=== PATIENT | male | born 1960 | race Hispanic/Latino ===

== ENCOUNTER → 2019-01-16 | Outpatient (CLI) | payer BC | END | disposition home or self-care (01) | LOC: SHCH 14:50 | PROVIDERS: ATTEND Internal Medicine Cardiovascular Disease | DX: I11.9 Hypertensive heart disease without heart failure (principal) | CPT/HCPCS: 93306 ==

== ENCOUNTER 2019-02-11 09:12 | Observation (INO) | payer BC ==
[2019-02-06 10:44] LABS: BASOPHILS % (AUTO) 0.6 % (0.0-5.0); EOSINOPHILS % (AUTO) 1.4 % (0.0-8.0); HEMATOCRIT 46.7 % (42-54); LYMPHOCYTES % (AUTO) 16.5 % (21.0-51.0); MEAN CORPUSCULAR HGB CONC 34.7 g/dL (32.0-36.0); MEAN CORPUSCULAR VOLUME 89.4 fL (79-99); MONOCYTES % (AUTO) 6.2 % (3.0-13.0); NEUTROPHILS % (AUTO) 75.3 % (40.0-77.0); PLATELET COUNT (AUTO) 271 K/uL (130-400); RED BLOOD CELL COUNT(AUTO) 5.23 MIL/uL (4.50-6.20); RED CELL DISTRIBUTION WIDTH 13.7 % (11.0-15.5); WHITE BLOOD COUNT (AUTO) 9.3 K/uL (4.8-10.8)
[2019-02-06 10:51] LABS: CREATININE 1.1 mg/dL (0.5-1.5); POTASSIUM 3.9 mmol/L (3.5-5.1)
[2019-02-06 11:00] VITALS: BP 149/74
[2019-02-06 12:09] LABS: PARTIAL THROMBOPLASTIN TIME 26.1 SEC (26.3-35.5); PROTHROMBIN TIME 10.5 SEC (9.6-11.6)
[2019-02-06 12:22] LABS: APPEARANCE,URINE Clear (CLEAR); BILIRUBIN,URINE Negative (NEGATIVE); COLOR,URINE Yellow (YELLOW); GLUCOSE, URINE (UA) >=1000 mg/dL (NEGATIVE); KETONES,URINE Negative (NEGATIVE); LEUKOCYTE ESTERASE ,URINE Negative (NEGATIVE); NITRATE,URINE Negative (NEGATIVE); OCCULT BLOOD,URINE Negative (NEGATIVE); PROTEIN,URINE Negative (NEGATIVE); UROBILINOGEN,URINE 0.2 mg/dL (0.2-1.0)
[2019-02-06 12:29] LABS: BACTERIA,URINE Rare /HPF (None Seen); RBC,URINE 0-1 /HPF (0-1); SQUAMOUS EPITHELIAL CELL,UR Rare /HPF (0-2); WBC,URINE 0-1 /HPF (0-1)
[~2019-02-11] VITALS: Ht 177.8 cm; Wt 80.1 kg
[2019-02-11] VITALS (10 sets, daily range): BP systolic 120–136; BP diastolic 69–77
[~2019-02-11 09:12] MED LIST: ACETAMINOPHEN 325 MG TAB PO PRN; ALPR0.255 PO; ASPI-1181 PO; ATOR10TA69 PO; DAPA10TA PO; INSU300I SQ; LISI1TAB29 PO; METF-446 PO; METO100T14 PO; OMEG1CAP83 PO; OMEP40CA13 PO; OZEMPIC SQ; SODIUM CHLORIDE 0.9% 500ML 500 ML IV SCH
--- NOTE | 2019-02-11 09:25 | NUR ---
PATIENT ARRIVED PATIENT ARRIVED TO DAY PATIENT ACCOMPANIED BY SPOUSE (LOLIS). PATIENT AAOX3, RESPIRATIONS UNLABORED, VITAL SIGNS STABLE, DENIES ANY PAIN AT THIS TIME. PROCEDURE VERIFIED/CONFIRMED WITH PATIENT. HOSPITAL ROUTINE EXPLAINED TO PATIENT AND PATIENT'S SPOUSE, BOTH VERBALIZED UNDERSTANDING. SIDERAILS UP X2, BED IN LOWEST POSITION, CALL BARRAZA IN REACH.
[2019-02-11] MEDS ORDERED: MIDAZOLAM HCL 1 MG/ML 2ML VIAL ONE (10:25)
[2019-02-11] MEDS ORDERED: HEPARIN SODIUM 1000UNIT/ML 10ML VIAL ONE (10:25)
[2019-02-11] MEDS ORDERED: SODIUM BICARB 50MEQ 50ML VIAL ONE (10:25)
[2019-02-11] MEDS ORDERED: IOHEXOL-350 50ML VIAL IV ONE (10:25)
[2019-02-11] MEDS ORDERED: IOHEXOL 350 MG/ML 100ML INFUS..BTL IV ONE (10:25)
[2019-02-11] MEDS ORDERED: NITROGLYCERIN 5 MG/ML 10 ML VIAL IV ONE (10:25)
[2019-02-11] MEDS ORDERED: LIDOCAINE HCL 2% 20ML ONE (10:26)
[2019-02-11] MEDS ORDERED: MEPERIDINE-PF 25 MG/ML SYG ONE (10:26)
--- NOTE | 2019-02-11 10:40 | NUR ---
PATIENT TRANSFERRED PATIENT TAKEN TO [facility] VIA BED BY MIRNA REYES AND MIRNA YOUNG. PATIENT'S FAMILY INSTRUCTED TO WAIT IN ROOM IN ORDER TO SPEAK WITH DR CHERY AFTER PROCEDURE.
[2019-02-11] MEDS ORDERED: PRASUGREL HCL 10 MG TABLET ONE (12:02)
[2019-02-11] MEDS ORDERED: ASPIRIN 325MG EC TAB 325 MG TABLET.DR PO ONE (12:02)
[2019-02-11] MEDS ORDERED: ONDANSETRON HCL 4 MG/2 ML VIAL IVP PRN (12:30)
[2019-02-11] MEDS ORDERED: ACETAMINOPHEN-CODEINE 300/30MG TAB PO PRN ×2 (12:30)
[2019-02-11] MEDS ORDERED: GLUCAGON 1MG KIT 1 MG ML IM PRN (12:30)
[2019-02-11] MEDS ORDERED: ALPRAZOLAM 0.25 MG TABLET PO PRN (12:30)
[2019-02-11] MEDS ORDERED: PANTOPRAZOLE SODIUM 40 MG TABLET.DR PO PRN (12:30)
[2019-02-11] MEDS ORDERED: DEXTROSE 50%-WATER 50 ML DISP.SYRIN IV PRN (12:30)
[2019-02-11] MEDS ORDERED: TEMAZEPAM 30 MG CAP PO PRN (12:30)
--- NOTE | 2019-02-11 12:45 | NUR ---
ERROR ENTRY: INCORRECT TIME ENTERED ON ASSESSMENT. CORRECT TIME ASSESSMENT PERFORMED 1245. Addendum: 02/12/19 at 1713 by ROMA COREAS RN RN Amended: Links added.
--- NOTE | 2019-02-11 12:45 | NUR ---
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 RT GROIN PER CLOSE, DSG DRY & INTACT. PUNCTURE SITE SOFT, NON-TENDER. NO BLEEDING. NO HEMATOMA NOTED. (+) PALPABLE BILATERAL PEDAL PULSES. BLE PINK & WARM TO TOUCH. DENIES INCISIONAL PAIN. PT & FAMILY INFORMED TO MAINTAIN BR X 8 HRS. ORIENTED TO RM. PT A/O X 3. NO SOB. NO DISTRESS NOTED. DENIES CHEST PAIN OR DISCOMFORT. TELE: SR 70s. DENIES N/V AND/OR DIARRHEA. DIET ORDERED. INSTRUCTED TO CALL FOR ASSISTANCE. CALL CHRISTI W/IN REACH. FAMILY @ BEDSIDE.
[2019-02-11] MEDS: SODIUM CHLORIDE 0.9% 1000ML 1,000 ML IV SCH (15:18)
[2019-02-11] MEDS: INSULIN HUMULIN R 100 UNIT/ML 3ML SQ SCH ×2 (16:30→21:00)
[2019-02-11] MEDS: METOPROLOL TARTRATE 50 MG TAB PO SCH (21:00)
[2019-02-11] MEDS ORDERED: ATORVASTATIN CALCIUM 10 MG TABLET PO SCH (21:00)
[2019-02-12] MEDS: SODIUM CHLORIDE 0.9% 1000ML 1,000 ML IV SCH (01:48)
[2019-02-12 03:29] LABS: HEMATOCRIT 44.5 % (42-54); MEAN CORPUSCULAR HEMOGLOBIN 30.8 pg (27.0-33.0); MEAN CORPUSCULAR HGB CONC 34.6 g/dL (32.0-36.0); MEAN CORPUSCULAR VOLUME 88.9 fL (79-99); PLATELET COUNT (AUTO) 241 K/uL (130-400); RED CELL DISTRIBUTION WIDTH 13.5 % (11.0-15.5); WHITE BLOOD COUNT (AUTO) 9.3 K/uL (4.8-10.8)
[2019-02-12 03:41] LABS: CREATININE 1.1 mg/dL (0.5-1.5); POTASSIUM 3.7 mmol/L (3.5-5.1)
[2019-02-12 04:04] VITALS: BP 117/54
[2019-02-12] MEDS: INSULIN HUMULIN R 100 UNIT/ML 3ML SQ SCH ×3 (06:07→16:30)
[2019-02-12 07:00] VITALS: BP 152/79
[2019-02-12] MEDS ORDERED: INSULIN GLARGINE 100 UNITS/ML 10 ML VIAL SQ SCH (07:30)
[2019-02-12] MEDS ORDERED: LISINOPRIL 20 MG TABLET PO SCH (09:00)
[2019-02-12] MEDS ORDERED: ASPIRIN 81 MG EC TAB PO SCH (09:00)
[2019-02-12] MEDS ORDERED: FISH OIL 1000 MG/CAP PO SCH (09:00)
[2019-02-12] MEDS ORDERED: PRASUGREL HCL 10 MG TABLET PO SCH (09:00)
[2019-02-12] MEDS ORDERED: HYDROCHLOROTHIAZIDE 25 MG TABLET PO SCH (09:00)
[2019-02-12] MEDS ORDERED: ***HM*** (Dapagliflozin Propanediol (Farxiga) 10 MG) PO SCH (09:00)
[2019-02-12] MEDS: METOPROLOL TARTRATE 50 MG TAB PO SCH (09:06)
[2019-02-12 11:00] VITALS: BP 131/71
[2019-02-12 16:00] VITALS: BP 142/81
--- NOTE | 2019-02-12 18:30 | NUR ---
discharge patient discharged home at this time; all dc instructions given; all questions answered; prescription given and called in to [facility] on [address]; piv and telepack removed
[2019-02-16] MEDS ORDERED: OZEMPIC 0.5 MG SQ SCH (09:00)
== END 2019-02-12 18:35 | disposition home or self-care (01) ==
LOC: DAH 09:12 → 2AH 09:13 → DAH 09:13
PROVIDERS: ADMIT Internal Medicine; ATTEND Internal Medicine
DX: I25.119 Atherosclerotic heart disease of native coronary artery with unspecified angina pectoris (principal); I25.5 Ischemic cardiomyopathy; I25.82 Chronic total occlusion of coronary artery; I10 Essential (primary) hypertension; E78.5 Hyperlipidemia, unspecified; E11.9 Type 2 diabetes mellitus without complications; F41.9 Anxiety disorder, unspecified; Z79.84 Long term (current) use of oral hypoglycemic drugs; Z79.899 Other long term (current) drug therapy
CPT/HCPCS: 36415 ×2; 71045; 80048 ×2; 81001; 82948 ×6; 85025; 85027; 85610; 85730; 93005; 93458; 96372; A4215; A4216; A4221; A4222; A4223 ×3; A4606; A4663; C1725; C1760; C1769 ×2; C1874 ×3; C1887 ×2; C1894; C9600; C9607; G0378 ×30; J1644 ×3; J1815; J2175; J2250; J3490 ×3; J7030; Q9965 ×2; Q9967 ×2; 99156; 99157

== ENCOUNTER → 2020-05-06 | Outpatient (CLI) | payer OTHER ==
[~2020-05-06] MED LIST changes: -ACETAMINOPHEN 325 MG TAB PO PRN; -ASPI-1181 PO; +ASPI-1443 PO; -SODIUM CHLORIDE 0.9% 500ML 500 ML IV SCH
== END | disposition home or self-care (01) ==
LOC: SHCH 11:01
PROVIDERS: ATTEND Internal Medicine Cardiovascular Disease
DX: I25.5 Ischemic cardiomyopathy (principal)
CPT/HCPCS: 93306; 93356

== ENCOUNTER → 2020-05-07 | Outpatient (CLI) | payer OTHER ==
[~2020-05-07] MED LIST changes: +REGADENOSON 0.4 MG/5 ML PF SYG IVP SCH
== END | disposition home or self-care (01) ==
LOC: SHCH 08:32
PROVIDERS: ATTEND Internal Medicine Cardiovascular Disease
DX: I25.10 Atherosclerotic heart disease of native coronary artery without angina pectoris (principal); I10 Essential (primary) hypertension
CPT/HCPCS: 78452; 93017; 96374; A9500 ×2; J2785

== ENCOUNTER 2020-06-28 06:00 | Day surgery (SDC) | payer OTHER ==
[2020-06-25 09:30] LABS: BASOPHILS % (AUTO) 0.4 % (0.0-5.0); EOSINOPHILS % (AUTO) 0.9 % (0.0-8.0); HEMATOCRIT 51.8 % (42-54); MEAN CORPUSCULAR HEMOGLOBIN 28.7 pg (27.0-33.0); MEAN CORPUSCULAR HGB CONC 32.8 g/dL (32.0-36.0); MEAN CORPUSCULAR VOLUME 87.5 fL (79-99); MONOCYTES % (AUTO) 6.7 % (3.0-13.0); NEUTROPHILS % (AUTO) 76.2 % (40.0-77.0); PLATELET COUNT (AUTO) 238 K/uL (130-400); RED BLOOD CELL COUNT(AUTO) 5.92 MIL/uL (4.50-6.20); RED CELL DISTRIBUTION WIDTH 13.4 % (11.0-15.5); WHITE BLOOD COUNT (AUTO) 9.2 K/uL (4.8-10.8)
[2020-06-25 09:42] LABS: CREATININE 1.2 mg/dL (0.5-1.5); POTASSIUM 4.2 mmol/L (3.5-5.1)
[2020-06-25 09:48] LABS: INR 1.01 (0.85-1.15)
[2020-06-25 09:49] LABS: PARTIAL THROMBOPLASTIN TIME 24.2 SEC (26.3-35.5)
[2020-06-25 10:40] VITALS: BP 130/69
[2020-06-28] VITALS (10 sets, daily range): BP systolic 92–126; BP diastolic 45–66
[~2020-06-28] VITALS: Ht 177.8 cm; Wt 82.6 kg
[~2020-06-28 06:00] MED LIST changes: -ALPR0.255 PO; +BIMA12.5OS OU; +COMB5OS OU; +DORZ10DR19 OU; +LATA7.5D OU; -OMEG1CAP83 PO; +PRAS10TA9 PO; -REGADENOSON 0.4 MG/5 ML PF SYG IVP SCH; +SODIUM CHLORIDE 0.9% 1000ML 1,000 ML IV SCH
[2020-06-28] MEDS ORDERED: LIDOCAINE HCL 1% MDV 50ML VIAL ONE (09:02)
[2020-06-28] MEDS ORDERED: BUPIVACAINE/PF 0.25% 30ML VIAL IJ ONE (09:02)
[2020-06-28] MEDS ORDERED: IODIXANOL 320 MG/ML 100 ML VIAL ONE (09:11)
[2020-06-28] MEDS ORDERED: CEFAZOLIN SODIUM 1 GM VIAL ONE (09:11)
[2020-06-28] MEDS ORDERED: MIDAZOLAM HCL 1 MG/ML 2ML VIAL ONE ×3 (09:12→09:45)
[2020-06-28] MEDS ORDERED: MEPERIDINE-PF 50 MG/ML SYG ONE (09:12)
[2020-06-28] MEDS ORDERED: MEPERIDINE-PF 25 MG/ML SYG ONE (09:45)
[2020-06-28] MEDS ORDERED: ONDANSETRON HCL 4 MG/2 ML VIAL IV PRN (11:00)
[2020-06-28] MEDS ORDERED: DEXTROSE 50%-WATER 50 ML DISP.SYRIN IV PRN (11:00)
[2020-06-28] MEDS ORDERED: ACETAMINOPHEN-CODEINE 300/30MG TAB PO PRN ×2 (11:00)
[2020-06-28] MEDS: INSULIN HUMULIN R 100 UNIT/ML 3ML SQ SCH ×2 (11:30→16:30)
[2020-06-28] MEDS ORDERED: ACETAMINOPHEN 325 MG TAB PO ONE (16:00)
[2020-06-28] MEDS ORDERED: CEFAZOLIN SODIUM 1 GM VIAL IVP SCH (17:00)
== END 2020-06-28 18:05 | disposition home or self-care (01) ==
LOC: DAH 06:00
PROVIDERS: ATTEND Internal Medicine Cardiovascular Disease
DX: I50.22 Chronic systolic (congestive) heart failure (principal); I25.5 Ischemic cardiomyopathy; I11.0 Hypertensive heart disease with heart failure; E11.9 Type 2 diabetes mellitus without complications; I45.10 Unspecified right bundle-branch block; F41.9 Anxiety disorder, unspecified; E78.5 Hyperlipidemia, unspecified; I25.2 Old myocardial infarction; Z79.890 Hormone replacement therapy; Z79.899 Other long term (current) drug therapy; Z79.82 Long term (current) use of aspirin; Z79.84 Long term (current) use of oral hypoglycemic drugs; Z98.890 Other specified postprocedural states; Z95.5 Presence of coronary angioplasty implant and graft; Z79.01 Long term (current) use of anticoagulants
CPT/HCPCS: 33225; 33249; 36415; 71045; 80048; 82948 ×3; 85025; 85610; 85730; 93005; A4215; A4216; A4221; A4222; A4223 ×3; A4606; A4663; A6260; C1769 ×2; C1882; C1894; C1895; C1896; C1900; J0690 ×2; J2175; J2250 ×2; J3490 ×2; J7030; Q9967; 99156; 99157

== ENCOUNTER 2021-01-20 05:56 | Day surgery (SDC) | payer OTHER ==
[2021-01-18 16:20] LABS: BASOPHILS % (AUTO) 0.6 % (0.0-5.0); EOSINOPHILS % (AUTO) 2.6 % (0.0-8.0); HEMATOCRIT 48.7 % (42-54); LYMPHOCYTES % (AUTO) 18.8 % (21.0-51.0); MEAN CORPUSCULAR HEMOGLOBIN 28.8 pg (27.0-33.0); MEAN CORPUSCULAR HGB CONC 33.1 g/dL (32.0-36.0); MONOCYTES % (AUTO) 6.7 % (3.0-13.0); PLATELET COUNT (AUTO) 289 K/uL (130-400); RED CELL DISTRIBUTION WIDTH 13.7 % (11.0-15.5); WHITE BLOOD COUNT (AUTO) 9.7 K/uL (4.8-10.8)
[2021-01-18 16:21] LABS: APPEARANCE,URINE Clear (CLEAR); BILIRUBIN,URINE Negative (NEGATIVE); COLOR,URINE Yellow (YELLOW); GLUCOSE, URINE (UA) >=1000 mg/dL (NEGATIVE); KETONES,URINE Trace mg/dL (NEGATIVE); LEUKOCYTE ESTERASE ,URINE Negative (NEGATIVE); NITRATE,URINE Negative (NEGATIVE); OCCULT BLOOD,URINE Negative (NEGATIVE); PROTEIN,URINE Negative (NEGATIVE); UROBILINOGEN,URINE 0.2 mg/dL (0.2-1.0)
[2021-01-18 16:36] LABS: INR 1.01 (0.85-1.15)
[2021-01-18 16:38] LABS: PARTIAL THROMBOPLASTIN TIME 28.2 SEC (26.3-35.5)
[2021-01-18 16:41] LABS: BACTERIA,URINE None Seen /HPF (None Seen); MUCUS,URINE Rare LPF (None Seen); RBC,URINE 0-1 /HPF (0-1); SQUAMOUS EPITHELIAL CELL,UR Rare /HPF (0-2); WBC,URINE 0-1 /HPF (0-1)
[2021-01-18 16:55] LABS: CREATININE 1.1 mg/dL (0.5-1.5); POTASSIUM 4.1 mmol/L (3.5-5.1)
[2021-01-19 10:00] VITALS: BP 173/89
[2021-01-20] VITALS (12 sets, daily range): BP systolic 98–144; BP diastolic 63–75
[~2021-01-20] VITALS: Ht 180.3 cm; Wt 83.6 kg
[~2021-01-20 05:56] MED LIST changes: +0.9% NACL 500ML IV.SOLN 500 ML IV SCH; +ACETAMINOPHEN 325 MG TAB PO PRN; -BIMA12.5OS OU; +CLOB15CR5 TP; -DORZ10DR19 OU; -OMEP40CA13 PO; +OMEP40CA21 PO; -SODIUM CHLORIDE 0.9% 1000ML 1,000 ML IV SCH
[2021-01-20] MEDS ORDERED: 0.9%NACL 1000ML 1,000 ML IV ONE ×2 (07:09→08:10)
[2021-01-20] MEDS ORDERED: SODIUM BICARB 50MEQ 50ML VIAL 50 ML ONE (08:38)
[2021-01-20] MEDS ORDERED: IOHEXOL 350 MG/ML 100ML INFUS..BTL IV ONE (08:39)
[2021-01-20] MEDS ORDERED: MIDAZOLAM HCL 1 MG/ML 2ML VIAL ONE (08:39)
[2021-01-20] MEDS ORDERED: IOHEXOL-350 75 ML VIAL IV ONE (08:39)
[2021-01-20] MEDS ORDERED: HEPARIN 10,000 UNIT/10ML (1,000 UNIT/ML) VIAL ONE (08:39)
[2021-01-20] MEDS ORDERED: MEPERIDINE-PF 25 MG/ML SYG ONE (08:39)
[2021-01-20] MEDS ORDERED: LIDOCAINE HCL 400MG/20ML VIAL ONE (08:39)
[2021-01-20] MEDS ORDERED: NITROGLYCERIN 2 MG VIAL IV ONE (08:41)
[2021-01-20] MEDS ORDERED: 0.9%NACL 1000ML 1,000 ML IV SCH (10:00)
[2021-01-20] MEDS ORDERED: ONDANSETRON 4MG INJ IVP PRN (10:00)
== END 2021-01-20 19:20 | disposition home or self-care (01) ==
LOC: DAH 05:56
PROVIDERS: ATTEND Internal Medicine Cardiovascular Disease
DX: I25.119 Atherosclerotic heart disease of native coronary artery with unspecified angina pectoris (principal); T82.855A Stenosis of coronary artery stent, initial encounter; I11.0 Hypertensive heart disease with heart failure; I50.42 Chronic combined systolic (congestive) and diastolic (congestive) heart failure; I25.2 Old myocardial infarction; E78.5 Hyperlipidemia, unspecified; E11.9 Type 2 diabetes mellitus without complications; F41.9 Anxiety disorder, unspecified; I45.10 Unspecified right bundle-branch block; Z79.82 Long term (current) use of aspirin; Z79.01 Long term (current) use of anticoagulants; Z79.899 Other long term (current) drug therapy; Z95.5 Presence of coronary angioplasty implant and graft; Z82.49 Family history of ischemic heart disease and other diseases of the circulatory system; Z79.84 Long term (current) use of oral hypoglycemic drugs; Y83.8 Other surgical procedures as the cause of abnormal reaction of the patient, or of later complication, without mention of misadventure at the time of the procedure
CPT/HCPCS: 36415; 71045; 80048; 81001; 82948 ×2; 85025; 85610; 85730; 93005; 93458; A4215; A4216; A4221; A4222; A4223 ×2; A4606; A4663; C1760 ×2; C1769; C1874; C1887 ×2; C1894; C9600; J1644 ×2; J2175; J2250; J3490 ×3; J7030 ×2; Q9967; 99156; 99157

== ENCOUNTER → 2022-06-22 | Outpatient (CLI) | payer OTHER ==
[~2022-06-22] MED LIST changes: -0.9% NACL 500ML IV.SOLN 500 ML IV SCH; -ACETAMINOPHEN 325 MG TAB PO PRN; -LISI1TAB29 PO; +LISI1TAB53 PO
[2022-06-22 11:32] LABS: BASOPHILS % (AUTO) 0.7 % (0.0-5.0); EOSINOPHILS % (AUTO) 2.3 % (0.0-8.0); HEMATOCRIT 46.5 % (42-54); LYMPHOCYTES % (AUTO) 16.7 % (21.0-51.0); MEAN CORPUSCULAR HEMOGLOBIN 30.3 pg (27.0-33.0); MEAN CORPUSCULAR HGB CONC 33.3 g/dL (32.0-36.0); MONOCYTES % (AUTO) 8.7 % (3.0-13.0); NEUTROPHILS % (AUTO) 71.1 % (40.0-77.0); PLATELET COUNT (AUTO) 278 K/uL (130-400); RED BLOOD CELL COUNT(AUTO) 5.11 MIL/uL (4.50-6.20); RED CELL DISTRIBUTION WIDTH 14.7 % (11.0-15.5); WHITE BLOOD COUNT (AUTO) 7.5 K/uL (4.8-10.8)
[2022-06-22 11:43] LABS: HEMOGLOBIN A1C 6.2 % (4.0-6.0)
[2022-06-22 11:47] LABS: CREATININE 1.2 mg/dL (0.5-1.5); POTASSIUM 4.2 mmol/L (3.5-5.1); T4 (THYROXINE) 8.2 ug/dL (4.7-13.3); THYROID STIMULATING HORMONE 0.65 uIU/mL (0.36-3.74); TOTAL PROTEIN, SERUM 7.5 g/dL (6.0-8.3)
== END | disposition home or self-care (01) ==
LOC: LAB 08:15
PROVIDERS: ATTEND Internal Medicine Cardiovascular Disease
DX: I25.5 Ischemic cardiomyopathy (principal); I10 Essential (primary) hypertension
CPT/HCPCS: 36415; 80053; 80061; 83036; 84153; 84436; 84443; 84479; 85025

== ENCOUNTER → 2024-04-01 | Outpatient (CLI) | payer OTHER ==
--- NOTE | 2024-04-06 14:13 | HMCSR ---
APPROVED REPORT EXAM: Two-dimensional and M-mode echocardiogram with Doppler and color Doppler. INDICATION Chest Pain Surgery/Intervention Pacemaker: Date: 2020 RISK FACTORS Hypertension Hyperlipidemia Diabetes 2D Dimensions RVDd4.0 cmLVEF(%)39.0 (>50%)LVED Vol(simp.)132.0 mL IVSd1.0 (0.7-1.1cm)FS(%)19 %LVES Vol(simp.)84.0 mL LVDd5.4 (3.8-5.6cm)LA (2D)4.0 (1.6-4.0cm)LVEF(%, simp.)36 % PWd1.0 (0.7-1.1cm)Ao Root(2D)3.2 (2.0-3.7cm)LA ESV INDEX (BP)28.80 mL/m2 LVDs4.3 (2.5-4.0cm)LVOT diam2.2 (1.8-2.4cm) IVC diam1.5 cm M-Mode Dimensions EPSS0.8 cm Aortic Valve AoV Vmax1.0 m/Mark Peak GR4.4 mmHgLVOT Vmax0.7 m/s AoV VTI0.2 mAo Mean GR2.7 mmHgLVOT VTI0.17 m INÉS (VMAX)2.6 cm2AVA (VTI) 2.6 cm2 Mitral Valve MV E Vmax66.8 cm/sDECEL Pxfu558 ms MV A Vmax81.6 cm/s E/A ratio0.8 TDI E/E' Medial6.3 Pulmonary Valve PV Vmax0.8 m/sPV VTI0.19 m Tricuspid Valve TR Vmax2.5 m/sRAP (EST) 3 qwOzYOND92.9 mmHg TR Peak GR25.9 mmHg Left Ventricle Left ventricular cavity size is normal. Apical akinesis to dyskinesis. There is borderline concentric left ventricular hypertrophy. LVEF is 40%. No left ventricle thrombus noted on this study. Stage I d iastolic dysfunction. Right Ventricle The right ventricle is normal size. The right ventricular systolic function is normal. Atria The left atrium size is normal. The right atrium size is normal. Aortic Valve Aortic valve is trileaflet. Aortic valve leaflets are sclerotic but open well. No aortic regurgitatio n is present. There is no aortic valvular stenosis. Mitral Valve Mitral valve leaflets are sclerotic but open well. Mitral regurgitation is trace. There is no mitral valve stenosis. Tricuspid Valve The tricuspid valve leaflets appear normal. There is mild tricuspid regurgitation. Pulmonic Valve The pulmonic valve leaflets are thin and pliable; valve motion is normal. There is trace pulmonic viviane vular regurgitation. Great Vessels The aortic root is normal in size. The IVC is normal in size and collapses >50% with inspiration. Pericardium No pericardial effusion. Conclusion Left ventricular cavity size is normal. There is borderline concentric left ventricular hypertrophy. LVEF is 40%. Stage I diastolic dysfunction. Apical akinesis to dyskinesis. The right ventricle is normal size. The left atrium size is normal. Aortic valve is trileaflet. Aortic valve leaflets are sclerotic but open well. No aortic regurgitation is present. Mitral valve leaflets are sclerotic but open well. Mitral regurgitation is trace. There is mild tricuspid regurgitation. There is trace pulmonic valvular regurgitation. The aortic root is normal in size. The IVC is normal in size and collapses >50% with inspiration. No pericardial effusion.
== END | disposition home or self-care (01) ==
LOC: SHCH 12:41
PROVIDERS: ATTEND Internal Medicine Cardiovascular Disease
DX: I08.3 Combined rheumatic disorders of mitral, aortic and tricuspid valves (principal); I11.9 Hypertensive heart disease without heart failure; R07.9 Chest pain, unspecified; E78.5 Hyperlipidemia, unspecified; E11.9 Type 2 diabetes mellitus without complications; Z95.0 Presence of cardiac pacemaker
CPT/HCPCS: 93306

== ENCOUNTER → 2024-04-21 | Outpatient (CLI) | payer OTHER ==
[2024-04-21] MEDS: REGADENOSON 0.4 MG/5 ML PF SYG IVP ONE (09:44)
--- NOTE | 2024-04-22 16:59 | HMCSR ---
APPROVED REPORT Height: 5 ft 10in Weight: 183 lbs TEST INDICATIONS Chest Pain The imaging protocol used to acquire images was Rest Tc-99m/stress Tc-99m 1 day Consent: The procedure was explained and understood by the patient. Informerd consent was witnessed Vickie Mooney RN First, low dose rest was performed then high dose stress. RESTING DATA: The resting ekg shows: Pacemaker Rest SPECT myocardial perfusion imaging was performed in supine position 56 minutes following the int ravenous injection of 11.8 mCi of Tc-99 Sestamibi. Time of rest injection: 08:30: Date: 04/21/2024 Time of rest imagin:26: Date: 04/21/2024 PHARMACOLOGIC STRESS: Pharmacologic stress test was performed by injecting regadenoson 0.4 mg IV push followed by the intra venous injection of 31 mCi of Tc-99 Sestamibi. Time of stress injection: 10:00: Date: 04/21/2024 Time of stress imagin:03: Date: 04/21/2024 Heart Rate at time of stress injection: 74 bpm. Gated Stress SPECT was performed 63 minutes after stress injection. The images were gated to evaluate regional wall motion and calculate left ventricular ejection fracti on. STRESS DETAILS Reason for Termination: Infusion complete Stress Symptoms: Dyspnea Max HR Achieved: 88 bpm % of APMHR Achieved: 57 Max Blood Pressure: 148/76 mmHg Stress ECG: Pacemaker LEFT VENTRICLE Size: The left ventricular size is mildly dilated. Systolic Function:The left ventricular systolic function is moderately decreased. Wall Motion: Moderate global hypokinesis. The left ventricular ejection fraction was calculated to be 40%.TID = . LV PERFUSION Fixed infero-lateral thinning defect. Partially reversible dante-apical defect. Conclusion The left ventricular size is mildly dilated. The left ventricular systolic function is moderately decreased. Moderate global hypokinesis. Fixed infero-lateral thinning defect. Partially reversible dante-apical defect. The left ventricular ejection fraction was calculated to be 40%.
== END | disposition home or self-care (01) ==
LOC: SHCH 08:11
PROVIDERS: ATTEND Internal Medicine Cardiovascular Disease
DX: I51.7 Cardiomegaly (principal); R07.9 Chest pain, unspecified; Z95.0 Presence of cardiac pacemaker
CPT/HCPCS: 78452; 93017; J2785; A9500 ×2

== ENCOUNTER 2024-06-06 07:59 | Day surgery (SDC) | payer OTHER ==
[2024-06-04 10:05] VITALS: BP 129/68; PULSE 80; RESP 18; TEMP 98.1
--- NOTE | 2024-06-04 10:19 | EKG ---
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
[2024-06-04 10:29] LABS: BASOPHILS # (AUTO) 0.05 K/uL (0.00-0.20); BASOPHILS % (AUTO) 0.7 % (0.0-5.0); EOSINOPHILS # (AUTO) 0.17 K/uL (0.00-0.70); EOSINOPHILS % (AUTO) 2.4 % (0.0-8.0); HEMATOCRIT 41.5 % (42-54); IMMATURE GRANULOCYTE ABSOLUTE 0.02 K/uL (0-1); LYMPHOCYTES # (AUTO) 1.2 K/uL (1.0-4.8); MEAN CORPUSCULAR HEMOGLOBIN 32.2 pg (27.0-33.0); MEAN CORPUSCULAR HGB CONC 34.5 g/dL (32.0-36.0); MEAN CORPUSCULAR VOLUME 93.5 fL (79-99); MONOCYTES # (AUTO) 0.5 K/uL (0.1-1.0); MONOCYTES % (AUTO) 6.3 % (3.0-13.0); NEUTROPHILS # (AUTO) 5.3 K/uL (1.8-7.7); NEUTROPHILS % (AUTO) 73.3 % (40.0-77.0); PLATELET COUNT (AUTO) 280 K/uL (130-400); RED BLOOD CELL COUNT(AUTO) 4.44 MIL/uL (4.50-6.20); RED CELL DISTRIBUTION WIDTH 15.9 % (11.0-15.5); WHITE BLOOD COUNT (AUTO) 7.2 K/uL (4.8-10.8)
[2024-06-04 10:40] LABS: INR 1.01 (0.85-1.15); PROTHROMBIN TIME 11.3 SEC (9.6-11.6)
[2024-06-04 10:41] LABS: PARTIAL THROMBOPLASTIN TIME 27.1 SEC (26.3-35.5)
--- NOTE | 2024-06-04 10:52 | HMCIMG ---
Exam Type: CHEST 1VW Clinical Information: PREOP Comparison: None Findings: The lungs are clear of infiltrates. The heart is enlarged in size. The bony and soft tissue structures of the chest are unremarkable. Left cardiac pacemaker is noted with leads in place. Impression: Clear lungs.
[2024-06-04 11:09] LABS: B-TYPE NATRIURETIC PEPTIDE 20 pg/mL (0-100)
[2024-06-04 11:32] LABS: ADD UA MICROSCOPIC YES; APPEARANCE,URINE CLEAR (CLEAR); BACTERIA,URINE RARE /HPF (None Seen); BILIRUBIN,URINE NEGATIVE (NEGATIVE); COLOR,URINE YELLOW (YELLOW); GLUCOSE, URINE (UA) >=1000 mg/dL (NEGATIVE); KETONES,URINE NEGATIVE (NEGATIVE); LEUKOCYTE ESTERASE ,URINE NEGATIVE Leu/uL (NEGATIVE); MUCUS,URINE RARE LPF (None Seen); NITRATE,URINE NEGATIVE (NEGATIVE); OCCULT BLOOD,URINE NEGATIVE (NEGATIVE); PH,URINE 5.5 (5.0-8.0); PROTEIN,URINE NEGATIVE (NEGATIVE); RBC,URINE 0-1 /HPF (0-1); SQUAMOUS EPITHELIAL CELL,UR RARE /HPF (0-2); UROBILINOGEN,URINE 0.2 mg/dL (0.2-1.0); WBC,URINE 0-1 /HPF (0-1)
[2024-06-06] VITALS (14 sets, daily range): BP systolic 120–150; BP diastolic 66–75; PULSE 67–85; RESP 11–27; TEMP 97.3–98.2
[~2024-06-06] VITALS: Ht 177.8 cm; Wt 81.3 kg
[~2024-06-06 07:59] MED LIST changes: +ALPR0.255 PO; +AMLO-257 PO; -ATOR10TA69 PO; +ATOR20TA65 PO; -CLOB15CR5 TP; -COMB5OS OU; -DAPA10TA PO; +DAPA5TAB PO; +FOLI0.4T6 PO; +ICOS1CAP PO; -LATA7.5D OU; -LISI1TAB53 PO; +METH2.5T6 PO; -PRAS10TA9 PO; +SACU1TAB7 PO; +TRAZ-185 PO
[2024-06-06] MEDS: 0.9%NACL 1000ML 1,000 ML IV SCH (08:31)
[2024-06-06] MEDS ORDERED: LIDOCAINE HCL 400MG/20ML VIAL ONE (10:20)
[2024-06-06] MEDS ORDERED: IOHEXOL 350 MG/ML 100ML INFUS..BTL IV ONE (10:20)
[2024-06-06] MEDS ORDERED: MIDAZOLAM HCL 1 MG/ML 2ML VIAL ONE ×2 (10:20→10:36)
[2024-06-06] MEDS ORDERED: HEParin 10,000 UNIT/10ML (1,000 UNIT/ML) VIAL ONE (10:20)
[2024-06-06] MEDS ORDERED: niCARDIpine 25MG INJ IV ONE (10:20)
[2024-06-06] MEDS ORDERED: IOHEXOL-350 75 ML VIAL IV ONE (10:20)
[2024-06-06] MEDS ORDERED: MEPERIDINE-PF 50 MG/ML SYG ONE (10:20)
[2024-06-06] MEDS ORDERED: NITROGLYCERIN 50MG VIAL ONE (10:21)
[2024-06-06] MEDS ORDERED: HEParin-NS 1,000 UNIT/500 ML 1,000 ML IV ONE (10:21)
[2024-06-06] MEDS ORDERED: cloPIDOgrel 300MG TAB ONE (11:30)
[2024-06-06] MEDS ORDERED: 0.9%NACL 10ML VIAL IV PRN (12:00)
[2024-06-06] MEDS ORDERED: DEXTROSE 50%-WATER 50 ML DISP.SYRIN IV PRN (12:00)
--- NOTE | 2024-06-06 13:30 | NUR ---
VASC BAND REMOVED 2MLS OF AIR NOTED ACTIVE BLEEDING. 2MLS OF AIR INJECTED BACK IN WILL ATTEMPT AGAIN AT 1400.
--- NOTE | 2024-06-06 14:00 | NUR ---
VASC BAND ATTEMPTED TO REMOVE 2MLS OF AIR NOTED ACTIVE BLEEDING. 2MLS OF AIR RETURNED. NO ACTIVE BLEEDING. WILL WAIT AN HOUR BEFORE ATTEMPTING TO REMOVE 2MLS.
--- NOTE | 2024-06-06 14:55 | CCATH ---
PROCEDURES: * Left heart catheterization. * Selective diagnostic right and left coronary arteriogram. * Balloon angioplasty and stenting of the mid circumflex coronary artery x 2. * Balloon angioplasty and stenting of the mid LAD. * Conscious sedation for 1 hour. INDICATIONS: * Known history of coronary artery disease. * Status post remote multivessel stenting. * Ischemic cardiomyopathy with advanced LV dysfunction. * Abnormal Lexiscan Cardiolite. * Recurrent anginal equivalent symptoms. COMPLICATIONS: None. TOTAL CONTRAST: Approximately 85 mL. DESCRIPTION OF PROCEDURE: The patient was taken to the cardiac catheterization lab after the appropriate operative consents were signed. He was prepped and draped in the usual fashion. After conscious sedation was administered, the right radial artery region was infiltrated with 2% Xylocaine without epinephrine. A 6-Amharic radial slender sheath was advanced in retrograde fashion by the modified Seldinger technique over an indwelling wire. Radial cocktail was administered. At this point, a TIG 4 6-Amharic diagnostic catheter was advanced over an indwelling wire. This was positioned in the left ventricular cavity. Left ventricular end-diastolic pressure measurement was obtained. Ventriculography was deferred. The patient had an EF of 30% by echocardiographic studies. There was no evidence of aortic stenosis on pullback. At this point, the TIG 4 catheter was engaged in the ostium of the right coronary artery. This was imaged in multiplane. This was a small to moderately sized vessel that was widely patent. There was a patent stent in the proximal RCA and a patent stent in the distal RCA extending into the PDA. The patient had a codominant circulation and there was no PLVB coming off the left circulation. The PDA was a moderately sized vessel and had a mid vascular 60% lesion. The catheter was then redirected and engaged in the ostium of the left main. Imaging was obtained in multiplane. The left main was a large vessel that was free of disease and bifurcated into an LAD and a circumflex. Circumflex coronary artery was a large vessel that gave rise to several marginal branches and ongoing circumflex. The circumflex had a 90% lesion in its mid portion just after the second diagonal before a very large distal diagonal. The diagonal 1 was small, diagonal 2 is moderately sized and free of disease. The LAD was a large vessel that gave rise to several diagonals and septal perforators. The LAD had a patent stent in its proximal portion from the ostium to the area just after the first diagonal. The mid LAD had a 60% and a tandem 80% sequential lesions. The second diagonal was a smaller vessel and had a 60% lesion. Given the patient's symptoms and his abnormal Lexiscan Cardiolite, the decision was made to proceed with intervention for the circumflex and the LAD. At this point, an XB3 guide 6-Amharic catheter was selected and engaged in the left main coronary artery. A 0.014 wire was advanced and positioned in the distal circumflex circulation. We proceeded by placing a 2.75 x 26 mm [place] stent in the mid circumflex, which was inflated to nominal pressures. This had excellent angiographic results; however, there was an evidence of proximal edge dissection. We elected to cover that with a 3.0 x 26 mm [place] which was overlapped into the previously deployed stent and inflated to nominal pressures in the proximal to mid circumflex. At this point, the wire was redirected into the distal LAD. We then placed a 2.75 x 26 [place] in the mid LAD, which was inflated to 14 atmospheres at 2.85 mm size with good final angiographic results. At this point, the patient left the lab tech in stable condition after appropriate sheath withdrawal was performed. A radial band was applied. The patient was stable at the end of the procedure. FINAL IMPRESSION: * Severe prairie band coronary artery disease. * Patent proximal and distal right coronary artery stents in a codominant system. * Patent proximal left anterior descending artery stent. * Successful balloon angioplasty and stent placement into the mid to distal and proximal to mid circumflex with 2 overlapping stents, 2.75 x 26 and 3.0 x 26 [place] with good angiographic results. * Successful balloon angioplasty and stenting of the mid LAD with a 2.75 x 26 [place] stent to 14 atmospheres at 2.85 mm size with good final angiographic results. PLAN: Continue medical management. TID: [id number] RECEIPT: [id number]
--- NOTE | 2024-06-06 16:15 | NUR ---
VASC BAND REMOVED VASC BAND USING CHLORA PREP TO CLEAN SITE. APPLIED 2X2 STERILE GAUZE. APPLIED D-STAT TO RIGHT WRIST. PIN SIZED REDNESS NOTED TO D-STAT. NO ACTIVE BLEEDING OR SWELLING TO SITE.
[2024-06-06] MEDS ORDERED: INSULIN humuLIN R 100 UNIT/ML 3ML SQ SCH (16:30)
== END 2024-06-06 16:30 | disposition home or self-care (01) ==
LOC: DAH 07:59
PROVIDERS: ATTEND Internal Medicine Cardiovascular Disease
DX: R94.39 Abnormal result of other cardiovascular function study (principal); I25.118 Atherosclerotic heart disease of native coronary artery with other forms of angina pectoris; I25.5 Ischemic cardiomyopathy; I25.84 Coronary atherosclerosis due to calcified coronary lesion; I11.0 Hypertensive heart disease with heart failure; I50.42 Chronic combined systolic (congestive) and diastolic (congestive) heart failure; E78.5 Hyperlipidemia, unspecified; E11.9 Type 2 diabetes mellitus without complications; F41.9 Anxiety disorder, unspecified; R06.02 Shortness of breath; I45.10 Unspecified right bundle-branch block; E66.9 Obesity, unspecified; Z68.26 Body mass index [BMI] 26.0-26.9, adult; Z95.5 Presence of coronary angioplasty implant and graft; Z79.84 Long term (current) use of oral hypoglycemic drugs; Z95.810 Presence of automatic (implantable) cardiac defibrillator; Z79.899 Other long term (current) drug therapy; Z79.82 Long term (current) use of aspirin
CPT/HCPCS: 80048; 83880; 85025; 85610; 85730; 81001; 36415; 71045; 93005; 93458; 85347; 82948 ×2; C9600 ×2; Q9965; C1769 ×2; C1874 ×3; A4649; C1894; C1887 ×2; J3490 ×3; J7030; J1644 ×2; J2250 ×2; J2175; Q9967 ×2; 99156; 99157

== ENCOUNTER → 2024-08-18 | Outpatient (CLI) | payer OTHER ==
[~2024-08-18] MED LIST changes: -OMEP40CA21 PO
--- NOTE | 2024-08-18 10:46 | HMCIMG ---
US ABDOMINAL RUQ\E\LTD HISTORY: Fatty liver COMPARISON: CT from 09/02/2016 TECHNIQUE: Right upper quadrant abdominal ultrasound study was performed. FINDINGS: Liver measures 15.8 cm. The visualized portion of the pancreas is within normal limits. Liver is echogenic consistent with liver parenchymal disease. No gallstone is seen. Common duct measures 4 mm. No evidence of gallbladder wall thickening is seen. Right kidney measures 10.4 x 6 x 5.4 cm. No hydronephrosis is seen of the right kidney. IMPRESSION: 1. No gallstones or ductal dilatation is seen. 2. No hydronephrosis is seen.
== END | disposition home or self-care (01) ==
LOC: RAH 09:44
PROVIDERS: ATTEND Internal Medicine
DX: R79.89 Other specified abnormal findings of blood chemistry (principal); K76.0 Fatty (change of) liver, not elsewhere classified
CPT/HCPCS: 76705